=== PATIENT | male | born 1960 | race Caucasian/White ===

== ENCOUNTER → 2016-04-17 | Outpatient (CLI) | payer OTHER ==
--- NOTE | 2016-04-17 08:59 | US ---
EXAMINATION TYPE: US gallbladder DATE OF EXAM: 04/17/2016 8:46 AM COMPARISON: NONE CLINICAL HISTORY: Epigastric Pain. EXAM MEASUREMENTS: Liver Length: 17.5 cm Gallbladder Wall: 0.2 cm CBD: 0.3 cm Right Kidney: 11.4 x 6.7 x 6.1 cm ANATOMY: Pancreas: Obscured by bowel gas, No obvious pathology Liver: Within normal limits Gallbladder: Within normal limits Evidence for sonographic Perez's sign: CBD: Within normal limits Right Kidney: Within normal limits IMPRESSION: No significant abnormality appreciated.
== END | disposition home or self-care (01) ==
LOC: RADUSWWP 08:28
PROVIDERS: ATTEND Surgery
DX: R10.33 Periumbilical pain (principal)
CPT/HCPCS: 76705

== ENCOUNTER → 2018-07-16 | Outpatient (CLI) | payer OTHER ==
--- NOTE | 2018-07-17 07:07 | CT ---
EXAMINATION TYPE: CT abdomen pelvis w con DATE OF EXAM: 07/16/2018 COMPARISON: None. HISTORY: lower anterior abdominal pain CT DLP: 2084.5 mGycm, Automated Exposure Control for Dose Reduction was Utilized. CONTRAST: CT scan of the abdomen and pelvis is performed with oral and with IV Contrast, patient injected with 100 mL of Isovue 300. FINDINGS: LUNG BASES: No significant abnormality is appreciated. LIVER/GB: No significant abnormality is appreciated. PANCREAS: No significant abnormality is seen. SPLEEN: No significant abnormality is seen. ADRENALS: No significant abnormality is seen. KIDNEYS: There is exophytic simple appearing 1.6 cm cyst anteriorly lower pole level left kidney axia l image 48 series 5. BOWEL: The oral contrast reaches level of the mid sigmoid colon. There is no suspicious small or larg e bowel dilatation. Normal contrast-filled appendix is seen from cecum extending inferiorly. PROSTATE/SEMINAL VESICLES: Prostate gland is mildly enlarged in size bulging on bladder base. Adjacen t pelvic phleboliths are seen. Correlate for underlying BPH. LYMPH NODES: No greater than 1cm abdominal or pelvic lymph nodes are appreciated. OSSEOUS STRUCTURES: Artificial disc material with posterior interpedicular rods and screws transfix L 5-S1 level with satisfactory alignment. There is mild to moderate axial joint space loss in both hips fairly symmetric in appearance. OTHER: No significant additional abnormality is seen. IMPRESSION: No significant acute finding is seen to account for patient's clinical symptoms of lower anterior abdominal pain.
== END | disposition home or self-care (01) ==
LOC: RADCTMAIN 15:35
PROVIDERS: ATTEND Family Medicine
DX: R10.31 Right lower quadrant pain (principal); R10.32 Left lower quadrant pain
CPT/HCPCS: 74177; Q9967

== ENCOUNTER 2020-07-14 20:51 | Observation (INO) | payer OTHER ==
[2020-07-14] MEDS ORDERED: SODIUM CHLORIDE 0.9% 1,000 ML IV ONE (23:02)
[2020-07-14] MEDS ORDERED: DEXAMETHASONE SOD PHOSPHATE 4 MG/ML 1 ML VIAL IV STA (23:02)
--- NOTE | 2020-07-14 23:30 | ED ---
General Adult HPI - General Chief complaint: Allergic Reaction Stated complaint: reaction to BAM,headache Time Seen by Provider: 07/14/20 23:24 Source: patient Mode of arrival: ambulatory Limitations: no limitations - History of Present Illness Initial comments: This patient is a 59-year-old man who presents to be evaluated for what he believes is a reaction to having received monoclonal antibodies for the virus infection that he had been diagnosed with. The patient had been seen here earlier in the day for a constellation of symptoms that it started approximately 9 days ago. He had been having headache, fatigue, myalgias, cough. He was seen here today had his diagnosis and was given the antibiotic therapy. He states that in the afternoon he was having shaking tremor and the headache that he had been having intensified. His fever had also gone up at home. -: hour(s) Location: head Severity scale (1-10): 10 Quality: aching Consistency: constant Improves with: none Worsens with: none Associated Symptoms: cough, fever/chills, headaches, malaise Treatments Prior to Arrival: other - Related Data Home Medications Medication Instructions Recorded Confirmed Magnesium Oxide [Magox 400] 800 mg PO DAILY 07/14/20 07/15/20 Previous Rx's Medication Instructions Recorded Dexamethasone [Decadron] 6 mg PO DAILY #7 tablet 07/16/20 Allergies Allergy/AdvReac Type Severity Reaction Status Date / Time No Known Allergies Allergy Verified 07/15/20 06:47 Review of Systems ROS Statement: Those systems with pertinent positive or pertinent negative responses have been documented in the HPI. ROS Other: All systems not noted in ROS Statement are negative. Constitutional: Reports: fever, chills, weakness Eyes: Denies: vision change ENT: Reports: congestion Respiratory: Reports: cough. Denies: dyspnea, wheezes Cardiovascular: Denies: chest pain, palpitations, edema Gastrointestinal: Reports: diarrhea. Denies: abdominal pain, nausea, vomiting Genitourinary: Denies: dysuria, hematuria Musculoskeletal: Reports: myalgia Skin: Denies: rash Neurological: Denies: headache, weakness, numbness Past Medical History Past Medical History: No Reported History Additional Past Medical History / Comment(s): JUST RECOVERING FROM BRONCHITIS (ANTIOBIOTICS WILL BE DONE BEFORE DAY OF PROCEDURE). History of Any Multi-Drug Resistant Organisms: None Reported Past Surgical History: Back Surgery, Hernia Repair Additional Past Surgical History / Comment(s): LUMBAR IN JULY 2015. BILATERAL CATARACTS WITH LENS. Past Psychological History: No Psychological Hx Reported Smoking Status: Never smoker Past Alcohol Use History: Occasional Past Drug Use History: None Reported - Past Family History Father Additional Family Medical History / Comment(s): heart problems Mother Family Medical History: Diabetes Mellitus General Exam Limitations: no limitations General appearance: alert, in no apparent distress Head exam: Present: atraumatic, normocephalic Eye exam: Present: normal appearance, PERRL, EOMI. Absent: scleral icterus, conjunctival injection ENT exam: Present: normal oropharynx Neck exam: Present: normal inspection, full ROM. Absent: tenderness, meningismus Respiratory exam: Present: rales. Absent: respiratory distress, wheezes, rhonchi, stridor Cardiovascular Exam: Present: regular rate, normal rhythm, normal heart sounds. Absent: systolic murmur, diastolic murmur, rubs, gallop GI/Abdominal exam: Present: soft. Absent: distended, tenderness, guarding, rebound Back exam: Present: normal inspection. Absent: CVA tenderness (R), CVA tenderness (L), vertebral tenderness Neurological exam: Present: alert, oriented X3, CN II-XII intact. Absent: motor sensory deficit Skin exam: Present: warm, dry, intact, normal color. Absent: rash Course Vital Signs 07/14/20 07/14/20 07/15/20 21:13 23:29 00:32 Temperature 101.7 F H 99.2 F Pulse Rate 104 H 86 80 Respiratory 20 18 18 Rate Blood Pressure 109/71 123/67 110/76 O2 Sat by Pulse 92 L 93 L 90 L Oximetry 07/15/20 07/15/20 07/15/20 01:45 02:55 04:00 Temperature 98.3 F Pulse Rate 72 80 76 Respiratory 16 18 18 Rate Blood Pressure 90/50 103/67 101/70 O2 Sat by Pulse 90 L 92 L 92 L Oximetry 07/15/20 07/15/20 06:00 06:58 Temperature 99.0 F Pulse Rate 90 Respiratory 20 Rate Blood Pressure 108/67 O2 Sat by Pulse 94 L Oximetry Medical Decision Making - Lab Data Result diagrams: 07/16/20 08:22 07/16/20 08:22 Disposition Clinical Impression: COVID-19, Hypoxia, Intractable headache Disposition: ADMITTED IP TO THIS HOSP Condition: Fair Is patient prescribed a controlled substance at d/c from ED?: No
[2020-07-14] MEDS ORDERED: MORPHINE SULFATE 4 MG/ML SYRINGE IV STA (23:41)
--- NOTE | 2020-07-15 00:15 | CT ---
EXAMINATION TYPE: CT brain wo con DATE OF EXAM: 07/15/2020 COMPARISON: None HISTORY: headache CT DLP: 1217.4 mGycm Automated exposure control for dose reduction was used. Images obtained of the brain without contrast. Ventricles have normal size. There is no mass effect nor midline shift. There is no sign of intracran ial hemorrhage. Calvarium is intact. There is normal aeration of the mastoid sinuses. Skull base is i ntact. There is no evidence of cerebral edema. IMPRESSION: Head CT scan is normal for age.
[2020-07-15] MEDS ORDERED: SODIUM CHLORIDE 0.9% 500 ML 500 ML IV STA (03:03)
[2020-07-15] MEDS ORDERED: HYDROcodone/APAP 5-325MG 1 EACH TAB PO STA (03:41)
[2020-07-15] MEDS ORDERED: NALOXONE 0.4 MG/ML 1 ML VIAL IV PRN (04:08)
[2020-07-15] MEDS ORDERED: ONDANSETRON 4 MG/2 ML VIAL IVP PRN (04:08)
[2020-07-15] MEDS ORDERED: HYDROcodone/APAP 5-325MG 1 EACH TAB PO PRN (04:08)
[2020-07-15] MEDS ORDERED: HEPARIN SODIUM,PORCINE/PF 5,000 UNIT/0.5 ML SYRINGE SQ SCH (08:00)
[2020-07-15] MEDS: SODIUM CHLORIDE 0.9% 1,000 ML IV SCH ×3 (10:10→21:40)
[2020-07-15] MEDS: DEXAMETHASONE SOD PHOSPHATE 10 MG/ML 1 ML VIAL IV SCH (10:16)
[2020-07-15] MEDS: MAGNESIUM OXIDE 400 MG TAB PO SCH (10:17)
[2020-07-15] MEDS: ENOXAPARIN 40 MG/0.4 ML SYRINGE SQ SCH (17:25)
--- NOTE | 2020-07-15 20:36 | P.HPIM ---
History of Present Illness H&P Date: 07/15/20 Chief Complaint: Headache, fever and chills Patient is a 59-year-old male with a known history of GERD, previous history of smoking initially presents to ER on 07/14/2020 with complaints of headache associated with cough and shortness of breath. Patient has been having symptoms for the past 12 days. Complains of generalized body aches, fatigue, nausea and decreased appetite and no signs of vomiting. Patient did have episodes of diarrhea. No headache cough and chills Patient presents back to the hospital Patient presented back to the hospita. Patient has been taking Tylenol at home without much improvement. Patient was initially seen in the ER and was given monoclonal antibodies. . Patient was shaking with tremors and worsening headache after infusion. Chest x-ray showed mild cardiomegaly and chronic parenchymal changes with bilateral focal opacities in the periphery of the mid to lower lungs consistent with COVID-[address] head showed normal for age. Laboratory showed sodium 136 potassium 4.2 BUN 23 creatinine 1.1 ferritin 2217, AST 132 ALT 161 LDH 869 CRP 19.9 and pro calcitonin 0.11 COVID-19 PCR detected. Lymphocytes 0.8 and WBC 4.5 hemoglobin 15.7 Review of Systems Constitutional: Patient does have fever chills and generalized weakness malaise and headache. shaky Abdomen: Patient does have nausea. No vomiting, occational ] diarrhea and no abdominal pain. Cardiovascular: Patient denies any chest pain or short of breath no palpitations. Respiratory: patient denied any cough or sputum production. No shortness of breath Neurologic: Patient denied any numbness or tingling. + headache. Musculoskeletal: Patient denies any complaints of joint swelling or deformity. Skin: Negative Psychiatric: Negative Endocrine: No heat or cold intolerance. No recent weight gain. Genitourinary: No dysuria or hematuria. All other 14 point ROS negative except the above Past Medical History Past Medical History: GERD/Reflux, Pneumonia Additional Past Medical History / Comment(s): low magnesium, bronchitis, History of Any Multi-Drug Resistant Organisms: None Reported Past Surgical History: Back Surgery, Hernia Repair Additional Past Surgical History / Comment(s): LUMBAR IN JULY 2015. BILATERAL CATARACTS WITH LENS. Past Anesthesia/Blood Transfusion Reactions: No Reported Reaction Past Psychological History: No Psychological Hx Reported Smoking Status: Former smoker Past Alcohol Use History: Occasional Past Drug Use History: None Reported - Past Family History Father Additional Family Medical History / Comment(s): heart problems Mother Family Medical History: Diabetes Mellitus Medications and Allergies Home Medications Medication Instructions Recorded Confirmed Type Magnesium Oxide [Magox 400] 800 mg PO DAILY 07/14/20 07/15/20 History Allergies Allergy/AdvReac Type Severity Reaction Status Date / Time No Known Allergies Allergy Verified 07/15/20 06:47 Physical Exam Vitals: Vital Signs Temp Pulse Pulse Resp BP BP Pulse Ox 07/15/20 08:49 98.0 F 55 L 20 133/80 98 07/15/20 06:58 99.0 F 07/15/20 06:00 90 20 108/67 94 L 07/15/20 04:00 76 18 101/70 92 L 07/15/20 02:55 98.3 F 80 18 103/67 92 L 07/15/20 01:45 72 16 90/50 90 L 07/15/20 00:32 80 18 110/76 90 L 07/14/20 23:29 99.2 F 86 18 123/67 93 L 07/14/20 21:13 101.7 F H 104 H 20 109/71 92 L Intake and Output 07/14/20 07/15/20 07/15/20 22:59 06:59 14:59 Intake Total 200 Balance 200 Intake: Oral 200 Other: # Voids 1 Weight 117.934 kg 117.934 kg PHYSICAL EXAMINATION: Patient is lying in the bed comfortably, no acute distress, awake alert and oriented.. HEENT: Normocephalic. Neck is supple. Pupils reactive. Nostrils clear. Oral cavity is moist. Ears reveal no drainage. Neck reveals no JVD, carotid bruits, or thyromegaly. CHEST EXAMINATION: Trachea is central. Symmetrical expansion. Lung hernández clear to auscultation and percussion. CARDIAC: Normal S1, S2 with no gallops. No murmurs ABDOMEN: Soft. Bowel sounds normal. No organomegaly. No abdominal bruits. Extremities: reveal no edema. No clubbing or cyanosis Neurologically awake, alert, oriented x3 with well-coordinated movements. No focal deficits noted Skin: No rash or skin lesions. Psychiatric: Coperative. Nonsuicidal Musculoskeletal: No joint swelling or deformity. Normal range of motion. Thrombosis Risk Factor Assmnt - Choose All That Apply Any of the Below Risk Factors Present?: Yes Each Factor Represents 1 point: Age 41-60 years, Obesity (BMI >25), Serious lung disease incl. pneumonia (< 1month) Other Risk Factors: No Other congenital or acquired thrombophilia - If yes, enter type in comment: No Thrombosis Risk Factor Assessment Total Risk Factor Score: 3 Thrombosis Risk Factor Assessment Level: Moderate Risk Assessment and Plan Assessment: Acute COVID-19 pneumonia. Patient has been having symptoms for the past 12 days prior to admission Acute hypoxic respite failure requiring 2 L oxygen via nasal cannula. Fever chills and headache secondary to pneumonia. CT head is negative Elevated flu markers secondary to COVID-19 infection Transaminitis GERD Previous history of smoking DVT prophylaxis with Lovenox. Plan: Patient will be continued on dexamethasone, Lovenox and multivitamins and IV hydration until tomorrow. Patient received BAM infusion on 07/14/2020 Continue with home medications and follow-up inflammatory markers. Titrate down oxygen. Further recommendations based on clinical course. Symptomatic management for headache with Tylenol. Time with Patient: Greater than 30
[2020-07-15] MEDS: CHOLECALCIFEROL 25 MCG (1000 IU) TABLET PO SCH (21:39)
[2020-07-15] MEDS: ZINC SULFATE 220 MG CAP PO SCH (21:39)
[2020-07-15] MEDS: BENZONATATE 100 MG CAP PO PRN (21:39)
[2020-07-15 22:05] LABS: C Reactive Protein 6.4 mg/dL (0.0-0.8)
[2020-07-16] MEDS: SODIUM CHLORIDE 0.9% 1,000 ML IV SCH (06:30)
[2020-07-16] MEDS: BENZONATATE 100 MG CAP PO PRN (08:31)
[2020-07-16] MEDS: CHOLECALCIFEROL 25 MCG (1000 IU) TABLET PO SCH (08:31)
[2020-07-16] MEDS: MAGNESIUM OXIDE 400 MG TAB PO SCH (08:31)
[2020-07-16] MEDS: ENOXAPARIN 40 MG/0.4 ML SYRINGE SQ SCH (08:31)
[2020-07-16] MEDS: ZINC SULFATE 220 MG CAP PO SCH (08:31)
[2020-07-16] MEDS: DEXAMETHASONE SOD PHOSPHATE 10 MG/ML 1 ML VIAL IV SCH (08:32)
[2020-07-16 10:05] VITALS: RESP 18
[2020-07-16 11:25] LABS: Basophils # (A) 0 X 10*3/uL (0.00-0.10); Basophils % (A) 0 %; Eosinophils # (A) 0 X 10*3/uL (0.04-0.35); Eosinophils % (A) 0 %; Lymphocytes # (A) 1.17 X 10*3/uL (0.90-5.00); MCHC 31.9 g/dL (32.0-37.0); MCV 90.9 fL (80.0-97.0); Mean Platelet Volume 12.1 fL (9.5-12.2); Monocytes # (A) 0.21 X 10*3/uL (0.20-1.00); Monocytes % (A) 3.8 %; Neutrophils # (A) 4.16 X 10*3/uL (1.80-7.70); Neutrophils % (A) 74.7 %; Platelet Count 122 X 10*3/uL (140-440); RBC 5.17 X 10*6/uL (4.40-5.60); RDW 13.7 % (11.5-14.5); WBC 5.57 X 10*3/uL (4.50-10.00)
[2020-07-16] MEDS ORDERED: guaiFENesin-DM 100-10MG/5ML 10 ML CUP PO PRN (11:34)
[2020-07-16 11:40] LABS: African American GFR (CKD) 113.3 (60.0-200.0); Albumin 4.3 g/dL (3.80-4.90); Albumin/Globulin Ratio 2.05 (1.60-3.17); Anion Gap 8.4 mmol/L (4.00-12.00); BUN/Creat Ratio 23.75 Ratio (12.00-20.00); Calcium 8.8 mg/dL (8.7-10.3); Carbon Dioxide 25.6 mmol/L (21.6-31.8); Globulin 2.1 g/dL (1.6-3.3); Non-African American GFR(CKD) 97.8 (60.0-200.0); Potassium 4.3 mmol/L (3.5-5.5); Total Bilirubin 0.5 mg/dL (0.2-1.2); Total Protein 6.4 g/dL (6.2-8.2)
[2020-07-16 15:18] VITALS: BP 130/73; PULSE 55; TEMP 98.7
--- NOTE | 2020-08-02 15:10 | P.DS ---
Providers Date of admission: 07/15/20 04:08 Expected date of discharge: 07/16/20 Attending physician: Madhu Crowley [facility] Course: Discharge diagnosis Acute COVID-19 pneumonia. Patient has been having symptoms for the past 12 days prior to admission Acute hypoxic respite failure requiring 2 L oxygen via nasal cannula. Currently down to room air. Fever chills and headache secondary to pneumonia. CT head is negative Elevated flu markers secondary to COVID-19 infection Transaminitis GERD Previous history of smoking DVT prophylaxis with Lovenox. Hospital course Patient is a 59-year-old male with a known history of GERD, previous history of smoking initially presents to ER on 07/14/2020 with complaints of headache associated with cough and shortness of breath. Patient has been having symptoms for the past 12 days. Complains of generalized body aches, fatigue, nausea and decreased appetite and no signs of vomiting. Patient did have episodes of diarrhea. No headache cough and chills Patient presents back to the hospital Patient presented back to the hospita. Patient has been taking Tylenol at home without much improvement. Patient was initially seen in the ER and was given monoclonal antibodies. . Patient was shaking with tremors and worsening headache after infusion. Chest x-ray showed mild cardiomegaly and chronic parenchymal changes with bilateral focal opacities in the periphery of the mid to lower lungs consistent with COVID-[address] head showed normal for age. Laboratory showed sodium 136 potassium 4.2 BUN 23 creatinine 1.1 ferritin 2217, AST 132 ALT 161 LDH 869 CRP 19.9 and pro calcitonin 0.11 COVID-19 PCR detected. Lymphocytes 0.8 and WBC 4.5 hemoglobin 15.7 Patient was continued on dexamethasone, Lovenox and multivitamins and IV hydration. Patient received BAM infusion on 07/14/2020 Continue with home medications and follow-up inflammatory markers. Titrate down oxygen. Patient is currently saturating well on room air. Patient is being dis charged home and follow up with primary care physician. PHYSICAL EXAMINATION: Patient is lying in the bed comfortably, no acute distress, awake alert and oriented.. HEENT: Normocephalic. Neck is supple. Pupils reactive. Nostrils clear. Oral cavity is moist. Ears reveal no drainage. Neck reveals no JVD, carotid bruits, or thyromegaly. CHEST EXAMINATION: Trachea is central. Symmetrical expansion. Lung hernández clear to auscultation and percussion. CARDIAC: Normal S1, S2 with no gallops. No murmurs ABDOMEN: Soft. Bowel sounds normal. No organomegaly. No abdominal bruits. Extremities: reveal no edema. No clubbing or cyanosis Neurologically awake, alert, oriented x3 with well-coordinated movements. No focal deficits noted Skin: No rash or skin lesions. Psychiatric: Coperative. Nonsuicidal Musculoskeletal: No joint swelling or deformity. Normal range of motion. discharge vitals reviewed. Patient Condition at Discharge: Fair Plan - Discharge Summary Discharge Rx Participant: No New Discharge Prescriptions: New Dexamethasone [Decadron] 6 mg PO DAILY #7 tablet Continue Magnesium Oxide [Magox 400] 800 mg PO DAILY Discharge Medication List Magnesium Oxide [Magox 400] 800 mg PO DAILY 07/14/20 [History] Dexamethasone [Decadron] 6 mg PO DAILY #7 tablet 07/16/20 [Rx] Follow up Appointment(s)/Referral(s): Tony Cain DO [Primary Care Provider] - 1-2 days Patient Instructions/Handouts: Coronavirus Disease 2019 (COVID-19) Discharge Disposition: HOME SELF-CARE
== END 2020-07-16 16:10 | disposition home or self-care (01) ==
LOC: EC 20:51 → 4SSUR 07-15 04:08 → INTOOBSV 07-15 04:08 → 4SSUR 07-15 05:32 → UNDODISIN 07-16 16:10
PROVIDERS: ADMIT Hospitalist; ATTEND Hospitalist
DX: U07.1 COVID-19 (principal); J12.82 Pneumonia due to coronavirus disease 2019; J96.01 Acute respiratory failure with hypoxia; K21.9 Gastro-esophageal reflux disease without esophagitis; Z96.1 Presence of intraocular lens; Z98.41 Cataract extraction status, right eye; Z98.42 Cataract extraction status, left eye; Z87.891 Personal history of nicotine dependence; Z83.3 Family history of diabetes mellitus; Z82.49 Family history of ischemic heart disease and other diseases of the circulatory system
CPT/HCPCS: 96376 ×2; 96361 ×3; 96372; 96375 ×2; 96374; 99285; 80053; 83615; 85025; 86140; 70450; G0378 ×2; J2270; J1100 ×3; J2405; J1650 ×2; J1644

== ENCOUNTER → 2020-07-14 | Outpatient (CLI) | payer OTHER ==
[~2020-07-14] MED LIST: ACETAMINOPHEN TAB 500 MG TAB PO STA; ALBUTEROL HFA INHALER INHALATION STA; BAMLANIVIMAB (EUA) 700 MG, ETESEVIMAB (EUA) 1,400 MG in SODIUM CHLORIDE 0.9% 50 ML IVPB ONE; FAMOTIDINE 20 MG/2 ML VIAL IV STA; IBUPROFEN 400 MG TAB PO STA; ONDANSETRON 4 MG/2 ML VIAL IVP STA; SODIUM CHLORIDE 0.9% 1,000 ML IV STA; SODIUM CHLORIDE 0.9% 50 ML IVPB ONE; SODIUM CHLORIDE 0.9% 500 ML 500 ML in EMPTY BAG 1 BAG IV PRN; diphenhydrAMINE 50 MG/ML 1 ML VIAL IVP STA
--- NOTE | 2020-07-14 10:02 | ED ---
General Adult HPI - General Chief complaint: Upper Respiratory Infection Stated complaint: Headache, abd pain, cough, possible covid Time Seen by Provider: 07/14/20 09:15 Source: patient, RN notes reviewed Mode of arrival: ambulatory Limitations: no limitations - History of Present Illness Initial comments: Patient is a pleasant 59-year-old male presenting to the emergency Department with multiple symptoms. Onset of symptoms was 9 days ago. Patient does have cough with occasional clear sputum. No dyspnea. Patient has headache. Patient has nausea and decreased appetite. No vomiting. Patient has had some loose stools. Patient does have headaches. No neck pain. Patient is having chills and myalgias. Patient is fatigued. Patient took Tylenol once without much improvement. - Related Data Home Medications Medication Instructions Recorded Confirmed Magnesium Oxide [Magox 400] 800 mg PO DAILY 07/14/20 07/14/20 Allergies Allergy/AdvReac Type Severity Reaction Status Date / Time No Known Allergies Allergy Verified 07/14/20 10:43 Review of Systems ROS Statement: Those systems with pertinent positive or pertinent negative responses have been documented in the HPI. ROS Other: All systems not noted in ROS Statement are negative. Constitutional: Reports: chills Eyes: Denies: eye pain ENT: Denies: ear pain Respiratory: Reports: cough. Denies: dyspnea Cardiovascular: Denies: chest pain Endocrine: Reports: fatigue Gastrointestinal: Reports: nausea. Denies: abdominal pain, vomiting Genitourinary: Denies: dysuria Musculoskeletal: Denies: back pain Skin: Denies: rash Neurological: Reports: headache. Denies: confusion Past Medical History Past Medical History: No Reported History Additional Past Medical History / Comment(s): JUST RECOVERING FROM BRONCHITIS (ANTIOBIOTICS WILL BE DONE BEFORE DAY OF PROCEDURE). History of Any Multi-Drug Resistant Organisms: None Reported Past Surgical History: Back Surgery, Hernia Repair Additional Past Surgical History / Comment(s): LUMBAR IN JULY 2015. BILATERAL CATARACTS WITH LENS. Past Psychological History: No Psychological Hx Reported Smoking Status: Never smoker Past Alcohol Use History: Occasional Past Drug Use History: None Reported General Exam Limitations: no limitations General appearance: alert, in no apparent distress Head exam: Present: normocephalic Eye exam: Present: normal appearance Neck exam: Present: normal inspection. Absent: meningismus Respiratory exam: Present: normal lung sounds bilaterally Cardiovascular Exam: Present: regular rate, normal rhythm GI/Abdominal exam: Present: soft. Absent: tenderness Extremities exam: Present: normal inspection Neurological exam: Present: alert Psychiatric exam: Present: normal affect, normal mood Skin exam: Present: normal color Course Vital Signs 07/14/20 07/14/20 07/14/20 09:10 11:16 11:40 Temperature 98.0 F 101.9 F H Pulse Rate 92 78 Respiratory 18 18 18 Rate Blood Pressure 133/81 115/69 O2 Sat by Pulse 96 92 L Oximetry 07/14/20 12:13 Temperature 101.3 F H Pulse Rate 74 Respiratory 18 Rate Blood Pressure 122/70 O2 Sat by Pulse 94 L Oximetry Medical Decision Making - Medical Decision Making Patient reevaluated and updated. Patient still has some headache is more medication and would like to attempt to eat. Patient is a candidate for monoclonal antibodies, onset of symptoms was 9 days ago. - Lab Data Result diagrams: 07/14/20 11:15 07/14/20 11:15 Lab Results 07/14/20 07/14/20 07/14/20 Range/Units 10:17 10:42 11:15 WBC 4.5 (3.8-10.6) k/uL RBC 5.14 (4.30-5.90) m/uL Hgb 15.7 (13.0-17.5) gm/dL Hct 44.1 (39.0-53.0) % MCV 85.7 (80.0-100.0) fL MCH 30.5 (25.0-35.0) pg MCHC 35.6 (31.0-37.0) g/dL RDW 13.5 (11.5-15.5) % Plt Count 104 L (150-450) k/uL MPV 8.9 Neutrophils % 71 % Lymphocytes % 17 % Monocytes % 9 % Eosinophils % 1 % Basophils % 1 % Neutrophils # 3.2 (1.3-7.7) k/uL Lymphocytes # 0.8 L (1.0-4.8) k/uL Monocytes # 0.4 (0-1.0) k/uL Eosinophils # 0.0 (0-0.7) k/uL Basophils # 0.0 (0-0.2) k/uL PT (9.0-12.0) sec INR (<1.2) APTT (22.0-30.0) sec Sodium (137-145) mmol/L Potassium (3.5-5.1) mmol/L Chloride (98-107) mmol/L Carbon Dioxide (22-30) mmol/L Anion Gap mmol/L BUN (9-20) mg/dL Creatinine (0.66-1.25) mg/dL Est GFR (CKD-EPI)AfAm (>60 ml/min/1.73 sqM) Est GFR (CKD-EPI)NonAf (>60 ml/min/1.73 sqM) Glucose (74-99) mg/dL Plasma Lactic Acid Alfa (0.7-2.0) mmol/L Calcium (8.4-10.2) mg/dL Magnesium (1.6-2.3) mg/dL Total Bilirubin (0.2-1.3) mg/dL AST (17-59) U/L ALT (4-49) U/L Alkaline Phosphatase (38-126) U/L Lactate Dehydrogenase (313-618) U/L C-Reactive Protein (<10.0) mg/L Total Protein (6.3-8.2) g/dL Albumin (3.5-5.0) g/dL Coronavirus (PCR) Detected A (Not Detectd) Influenza Type A RNA Not Detected (Not Detectd) Influenza Type B (PCR) Not Detected (Not Detectd) 07/14/20 07/14/20 07/14/20 Range/Units 11:15 11:15 11:15 WBC (3.8-10.6) k/uL RBC (4.30-5.90) m/uL Hgb (13.0-17.5) gm/dL Hct (39.0-53.0) % MCV (80.0-100.0) fL MCH (25.0-35.0) pg MCHC (31.0-37.0) g/dL RDW (11.5-15.5) % Plt Count (150-450) k/uL MPV Neutrophils % % Lymphocytes % % Monocytes % % Eosinophils % % Basophils % % Neutrophils # (1.3-7.7) k/uL Lymphocytes # (1.0-4.8) k/uL Monocytes # (0-1.0) k/uL Eosinophils # (0-0.7) k/uL Basophils # (0-0.2) k/uL PT 10.4 (9.0-12.0) sec INR 1.0 (<1.2) APTT 26.3 (22.0-30.0) sec Sodium 136 L (137-145) mmol/L Potassium 4.2 (3.5-5.1) mmol/L Chloride 101 (98-107) mmol/L Carbon Dioxide 24 (22-30) mmol/L Anion Gap 11 mmol/L BUN 23 H (9-20) mg/dL Creatinine 1.10 (0.66-1.25) mg/dL Est GFR (CKD-EPI)AfAm 85 (>60 ml/min/1.73 sqM) Est GFR (CKD-EPI)NonAf 73 (>60 ml/min/1.73 sqM) Glucose 98 (74-99) mg/dL Plasma Lactic Acid Alfa 0.8 (0.7-2.0) mmol/L Calcium 8.8 (8.4-10.2) mg/dL Magnesium 2.3 (1.6-2.3) mg/dL Total Bilirubin 0.7 (0.2-1.3) mg/dL AST 132 H (17-59) U/L ALT 161 H (4-49) U/L Alkaline Phosphatase 59 (38-126) U/L Lactate Dehydrogenase 869 H (313-618) U/L C-Reactive Protein 19.9 H (<10.0) mg/L Total Protein 7.1 (6.3-8.2) g/dL Albumin 4.3 (3.5-5.0) g/dL Coronavirus (PCR) (Not Detectd) Influenza Type A RNA (Not Detectd) Influenza Type B (PCR) (Not Detectd) - Radiology Data Radiology results: image reviewed (Chest x-ray shows bilateral infiltrates consistent with coronal virus) Disposition Clinical Impression: COVID-19 Disposition: HOME SELF-CARE Condition: Stable Instructions (If sedation given, give patient instructions): Upper Respiratory Infection (ED), Fever in Adults (ED) Additional Instructions: Continue [id number] Tylenol and Motrin as needed. Return for not tolerating fluids, difficulty breathing, worsening symptoms or any other concerns. [id number] vitamin C, vitamin D, and zinc. Is patient prescribed a controlled substance at d/c from ED?: No Referrals: Tony Cain DO [Primary Care Provider] - 1-2 days Time of Disposition: 12:40
--- NOTE | 2020-07-14 11:42 | XR ---
EXAMINATION TYPE: XR chest 1V portable DATE OF EXAM: 07/14/2020 COMPARISON: Chest x-ray May 25, 2014 HISTORY: Shortness of breath. Suspected covid-19 pneumonia. TECHNIQUE: Single AP frontal upright view of the chest is obtained. FINDINGS: There chronic parenchymal changes with areas of faint increased opacity periphery of the b ilateral mid to lower lungs. The cardiac silhouette size is mildly enlarged. The osseous structure s are intact. IMPRESSION: Mild cardiomegaly and chronic parenchymal changes with bilateral focal opacities in the periphery of the mid to lower lungs consistent with covid-19 infection.
[2020-07-14 11:47] LABS: Albumin 4.3 g/dL (3.5-5.0); C Reactive Protein 19.9 mg/L (<10.0); Calcium 8.8 mg/dL (8.4-10.2); Magnesium 2.3 mg/dL (1.6-2.3); Potassium 4.2 mmol/L (3.5-5.1); Total Bilirubin 0.7 mg/dL (0.2-1.3); Total Protein 7.1 g/dL (6.3-8.2)
[2020-07-14 12:00] LABS: Basophils % (A) 1 %; Eosinophils % (A) 1 %; HCT 44.1 % (39.0-53.0); HGB 15.7 gm/dL (13.0-17.5); Lymphocytes # (A) 0.8 k/uL (1.0-4.8); Lymphocytes % (A) 17 %; MCH 30.5 pg (25.0-35.0); MCHC 35.6 g/dL (31.0-37.0); MCV 85.7 fL (80.0-100.0); Mean Platelet Volume 8.9; Monocytes # (A) 0.4 k/uL (0-1.0); Monocytes % (A) 9 %; Neutrophils # (A) 3.2 k/uL (1.3-7.7); Neutrophils % (A) 71 %; Partial Thromboplastin Time 26.3 sec (22.0-30.0); Platelet Count 104 k/uL (150-450); Prothrombin Time 10.4 sec (9.0-12.0); RBC 5.14 m/uL (4.30-5.90); RDW 13.5 % (11.5-15.5); WBC 4.5 k/uL (3.8-10.6)
[2020-07-14 13:58] VITALS: RESP 16
[2020-07-14 14:54] VITALS: BP 116/77; PULSE 74; TEMP 98.8
[2020-07-15 00:31] LABS: Ferritin 2217.3 ng/mL (22.0-322.0)
== END ==
LOC: PROCWHC3 09:09 → EC 09:09 → EDSTATUS 13:09
PROVIDERS: ATTEND Emergency Medicine
DX: U07.1 COVID-19 (principal)
CPT/HCPCS: 99284; 96360; 36415; 94640; 80053; 82728; 83605; 83615; 83735; 85025; 85610; 85730; 86140; 87040; 87502; 84145; 87635; 71045; J1200; J2405; Q0245; M0245

== ENCOUNTER → 2022-01-29 | Outpatient (CLI) | payer OTHER ==
--- NOTE | 2022-01-29 11:16 | XR ---
EXAMINATION TYPE: XR finger LT DATE OF EXAM: 01/29/2022 COMPARISON: NONE HISTORY: Pain TECHNIQUE: Three views are submitted. FINDINGS: The osseous structures are intact. There is deformity of the first PIP joint appears chronic. Severe arthropathy of the first carpometacarpal joint and second MCP joint incidentally noted. Tiny metalli c density overlying the soft tissues distal phalanx third digit correlate for chronic foreign body. IMPRESSION: 1. Chronic appearing deformity of the joint space first PIP joint with abnormal morphology of the dis moe margin of the proximal phalanx. This appears to be chronic. Mild degree of subluxation of the mid dle phalanx relative to the proximal larynx noted with no acute fracture. 2. Tiny metallic density overlying the soft tissues distal phalanx third digit correlate for chronic foreign body.
== END | disposition home or self-care (01) ==
LOC: RADXRYALE 09:33
PROVIDERS: ATTEND Physician Assistant
DX: M21.242 Flexion deformity, left finger joints (principal)

== ENCOUNTER → 2024-01-23 | Outpatient (CLI) | payer BC ==
--- NOTE | 2024-01-23 16:09 | XR ---
EXAMINATION TYPE: XR knee complete RT DATE OF EXAM: 01/23/2024 3:45 PM CLINICAL INDICATION: Male, 63 years old with history of [id number] RT KNEE PAIN; [facility] COMPARISON: None. TECHNIQUE: XR knee complete RT; examined in Frontal, lateral and oblique projections. FINDINGS: No evidence of any acute osseous pathology, soft tissue swelling, or joint effusion is no felisha. Tricompartmental osteophyte formation involving the femoral condyles, tibial plateau and patella . Mild joint space narrowing. IMPRESSION: 1. No acute osseous pathology. 2. Mild tricompartmental osteoarthritic changes. [facility], Workstation: [id number], 01/23/2024 4:06 PM
== END | disposition home or self-care (01) ==
LOC: RADXRYALE 15:18
PROVIDERS: ATTEND Physician Assistant
DX: M17.11 Unilateral primary osteoarthritis, right knee (principal)